=== PATIENT | female | born 1950 | race Caucasian/White ===

== ENCOUNTER 2022-06-09 03:59 | Day surgery (SDC) | payer OTHER ==
[2022-06-07 15:17] VITALS: BMI 23.8
[2022-06-09] MEDS ORDERED: LIDOCAINE HCL/PF 1% SDV 5ML VIAL ONE (07:26)
[2022-06-09 08:49] VITALS: RESP 18; TEMP 97.8
[2022-06-09] MEDS ORDERED: LIDOCAINE HCL 1% PRESERVATIVE FREE - 30ML VIAL IJ ONE (09:05)
[2022-06-09 12:53] VITALS: BP 184/84; PULSE 76
== END 2022-06-09 11:45 | disposition home or self-care (01) ==
LOC: JASU-SURG 03:59
PROVIDERS: ATTEND Pain Medicine Pain Medicine
PROC: 01HY3MZ Insertion of Neurostimulator Lead into Peripheral Nerve, Percutaneous Approach (ICD-10-PCS; principal; 2022-06-09 10:00)
DX: G89.4 Chronic pain syndrome (principal)
CPT/HCPCS: 64555; C1778

== ENCOUNTER → 2022-07-06 | Emergency (ER) | payer OTHER ==
[~2022-07-06] MED LIST: CEFTRIAXONE 1 GM in DEXTROSE 5%-WATER - 100 ML IVPB ONE; CEFTRIAXONE 1 GM/50 ML BAG ONE; SODIUM CHLORIDE 0.9% 1000 ML INFUS.BAG IV ONE
[2022-07-06 18:08] VITALS: BP 128/72; PULSE 68; RESP 18; TEMP 98.4; BMI 23.6
[2022-07-06 20:39] LABS: EPI CELLS 4 /uL (0-25.1); HYALINE CASTS 2 /uL (0-3.1); URINE APPEARANCE CLEAR; URINE BACTERIA >9,000 /uL (0-1359); URINE BILIRUBIN NEGATIVE (NEGATIVE); URINE COLOR YELLOW; URINE GLUCOSE (UA) NEGATIVE (NEGATIVE); URINE KETONE NEGATIVE (NEGATIVE); URINE LEUK ESTERASE 3+ (NEGATIVE); URINE NITRITE POSITIVE (NEGATIVE); URINE PROTEIN TRACE (NEGATIVE); URINE RBC 15 /uL (0-23.9); URINE WBC 350 /uL (0-25.8)
[2022-07-06 20:53] LABS: ALBUMIN 3.5 g/dl (3.4-5.0); BLOOD UREA NITROGEN 41.5 mg/dL (7-18); CALCIUM 9.1 mg/dL (8.5-10.1); MAGNESIUM 2.4 mg/dL (1.8-2.4)
[2022-07-06 20:57] LABS: BILIRUBIN,TOTAL 0.4 mg/dL (0.2-1); TOT PROT 7.4 g/dl (6.4-8.2)
[2022-07-06 21:55] LABS: BASO % 0.6 % (0-2.0); EOS % 1.6 % (0-4.5); HEMATOCRIT 35.4 % (32.4-45.2); HEMOGLOBIN 11.3 GM/dL (10.7-15.3); LYMPH % 42.1 % (8-40); MCH 24.7 pg (25.7-33.7); MCHC 31.9 g/dl (32.0-36.0); MEAN CELL VOLUME 77.5 fl (80-96); MEAN PLT VOLUME 8.7 fl (7.5-11.1); MONO % 11.2 % (3.8-10.2); NEUT % 44.5 % (42.8-82.8); PLATELET COUNT 522 10^3/uL (134-434); RBC 4.57 M/mm3 (3.60-5.2); RDW 17.8 % (11.6-15.6); WHITE BLOOD COUNT 10.2 K/mm3 (4.0-10.0)
== END | disposition home or self-care (01) ==
LOC: JER 17:18
PROC: 3E033GC Introduction of Other Therapeutic Substance into Peripheral Vein, Percutaneous Approach (ICD-10-PCS; principal; 2022-07-06)
DX: N39.0 Urinary tract infection, site not specified (principal); M54.9 Dorsalgia, unspecified; M25.551 Pain in right hip; G89.29 Other chronic pain; Z20.822 Contact with and (suspected) exposure to COVID-19
CPT/HCPCS: 0241U-QW; 36415; 71045-TC-FY; 80053; 81003; 83690; 83735; 85025; 87040; 87086; 87186; 93005; 93010; 99285-25

== ENCOUNTER 2022-08-29 03:35 | Day surgery (SDC) | payer OTHER ==
[2022-08-25 14:59] VITALS: BMI 23.6
[2022-08-29] MEDS ORDERED: BUPIVACAINE HCL/PF 0.75% 10 ML VIAL ONE (07:17)
[2022-08-29] MEDS ORDERED: LIDOCAINE HCL/PF 1% SDV 5ML VIAL ONE (07:18)
[2022-08-29] MEDS ORDERED: LIDOCAINE HCL 1% PRESERVATIVE FREE - 30ML VIAL IJ ONE (09:30)
[2022-08-29] MEDS ORDERED: BUPIVACAINE HCL/PF 0.75% 10 ML VIAL NR ONE (09:31)
[2022-08-29 10:40] VITALS: TEMP 98.5
[2022-08-29 10:41] VITALS: BP 130/60; PULSE 70; RESP 16
[2022-08-29] MEDS ORDERED: ACETAMINOPHEN 500 MG TABLET (FP) PO PRN (12:37)
== END 2022-08-29 10:00 | disposition home or self-care (01) ==
LOC: JASU-SURG 03:35
PROVIDERS: ATTEND Pain Medicine Pain Medicine
PROC: 3E0T3BZ Introduction of Anesthetic Agent into Peripheral Nerves and Plexi, Percutaneous Approach (ICD-10-PCS; principal; 2022-08-29 09:15)
DX: M47.816 Spondylosis without myelopathy or radiculopathy, lumbar region (principal)
CPT/HCPCS: 76000-TC-FY

== ENCOUNTER 2022-10-27 05:12 | Day surgery (SDC) | payer OTHER ==
[2022-10-09 10:50] VITALS: BMI 23.8
[~2022-10-27 05:12] MED LIST changes: +ACETAMINOPHEN 500 MG TABLET (FP) PO PRN; -CEFTRIAXONE 1 GM in DEXTROSE 5%-WATER - 100 ML IVPB ONE; -CEFTRIAXONE 1 GM/50 ML BAG ONE; -SODIUM CHLORIDE 0.9% 1000 ML INFUS.BAG IV ONE
[2022-10-27] MEDS ORDERED: LIDOCAINE HCL/PF 1% SDV 5ML VIAL ONE (07:44)
[2022-10-27] MEDS ORDERED: BUPIVACAINE HCL/PF 0.75% 10 ML VIAL ONE (07:44)
[2022-10-27] MEDS ORDERED: ACETAMINOPHEN 500 MG TABLET (FP) PO PRN (11:04)
[2022-10-27 11:16] VITALS: RESP 18
[2022-10-27] MEDS ORDERED: LIDOCAINE HCL 1% PRESERVATIVE FREE - 30ML VIAL IJ ONE (12:11)
[2022-10-27] MEDS ORDERED: BUPIVACAINE HCL/PF 0.75% 10 ML VIAL NR ONE (12:11)
[2022-10-27 12:35] VITALS: TEMP 97.6
[2022-10-27 13:27] VITALS: BP 158/76; PULSE 79
== END 2022-10-27 12:50 | disposition home or self-care (01) ==
LOC: JASU-SURG 05:12
PROVIDERS: ATTEND Pain Medicine Pain Medicine
PROC: 3E0T33Z Introduction of Anti-inflammatory into Peripheral Nerves and Plexi, Percutaneous Approach (ICD-10-PCS; 2022-10-27)
PROC: 3E0T3BZ Introduction of Anesthetic Agent into Peripheral Nerves and Plexi, Percutaneous Approach (ICD-10-PCS; principal; 2022-10-27 12:15)
DX: M47.816 Spondylosis without myelopathy or radiculopathy, lumbar region (principal)
CPT/HCPCS: 76000-TC-FY

== ENCOUNTER 2023-03-16 04:57 | Day surgery (SDC) | payer OTHER ==
[2023-03-14 12:02] VITALS: BMI 23.8
[2023-03-16] MEDS ORDERED: LIDOCAINE HCL/PF 1% SDV 5ML VIAL ONE (07:19)
[2023-03-16] MEDS ORDERED: DEXAMETHASONE SOD PHOSPHATE 10 MG/1 ML VIAL ONE ×2 (07:19→12:56)
[2023-03-16] MEDS ORDERED: LIDOCAINE HCL/PF 2% SDV 5ML VIAL ONE ×2 (07:19→12:56)
[2023-03-16] MEDS ORDERED: BUPIVACAINE HCL/PF 0.75% 10 ML VIAL ONE (07:19)
[2023-03-16] MEDS ORDERED: ACETAMINOPHEN 500 MG TABLET (FP) PO PRN (11:56)
[2023-03-16] MEDS ORDERED: LIDOCAINE 1% P/F 10 MG/ML VIAL INF ONE (13:31)
[2023-03-16] MEDS ORDERED: LIDOCAINE HCL 2% (50ML VIAL) INF ONE (13:31)
[2023-03-16] MEDS ORDERED: DEXAMETHASONE SOD PHOSPHATE 10 MG/1 ML VIAL IVPUSH ONE (13:31)
[2023-03-16 14:19] VITALS: BP 183/84; PULSE 71; RESP 18; TEMP 97.1
== END 2023-03-16 14:35 | disposition home or self-care (01) ==
LOC: JASU-SURG 04:57
PROVIDERS: ATTEND Pain Medicine Pain Medicine
PROC: 015B3ZZ Destruction of Lumbar Nerve, Percutaneous Approach (ICD-10-PCS; principal; 2023-03-16 13:30)
DX: M47.819 Spondylosis without myelopathy or radiculopathy, site unspecified (principal)
CPT/HCPCS: 76000-TC-FY; J1100

== ENCOUNTER 2024-01-31 07:15 | Day surgery (SDC) | payer OTHER ==
[2024-01-30 19:34] VITALS: BMI 24.5
[2024-01-31 14:18] VITALS: RESP 18; TEMP 98
[2024-01-31] MEDS: DEXAMETHASONE SOD PHOSPHATE 10 MG/1 ML VIAL IM ONE ×2 (15:25)
[2024-01-31] MEDS: LIDOCAINE HCL 1% PRESERVATIVE FREE - 30ML VIAL IJ ONE ×2 (15:25)
[2024-01-31] MEDS: BUPIVACAINE HCL/PF 0.75% 10 ML VIAL NR ONE ×2 (15:25)
[2024-01-31] MEDS: LIDOCAINE HCL/PF 2% SDV 5ML VIAL INF ONE (15:25)
[2024-01-31 16:22] VITALS: BP 151/70; PULSE 70
== END 2024-01-31 16:21 | disposition home or self-care (01) ==
LOC: JASU-SURG 07:15
PROVIDERS: ATTEND Pain Medicine Pain Medicine
PROC: 015B3ZZ Destruction of Lumbar Nerve, Percutaneous Approach (ICD-10-PCS; principal; 2024-01-31 16:00)
DX: M47.816 Spondylosis without myelopathy or radiculopathy, lumbar region (principal)
CPT/HCPCS: 76000-TC-FY; J1100

== ENCOUNTER 2024-02-28 04:07 | Day surgery (SDC) | payer OTHER ==
[2024-02-25 11:08] VITALS: BMI 24.5
[2024-02-28] MEDS: LIDOCAINE HCL/EPINEPHRINE/PF 10 ML VIAL NR ONE
[2024-02-28] MEDS ORDERED: ACETAMINOPHEN 500 MG TABLET (FP) PO PRN (09:31)
[2024-02-28 11:43] VITALS: BP 176/73; PULSE 82; RESP 16; TEMP 97.6
[2024-02-28] MEDS: LIDOCAINE HCL 1% PRESERVATIVE FREE - 30ML VIAL IJ ONE ×3 (14:02)
[2024-02-28] MEDS: LIDOCAINE HCL/PF 2% SDV 5ML VIAL INF ONE ×2 (14:12)
[2024-02-28] MEDS: BUPIVACAINE HCL/PF 0.75% 10 ML VIAL NR ONE ×3 (14:17)
[2024-02-28] MEDS: DEXAMETHASONE SOD PHOSPHATE 10 MG/1 ML VIAL IM ONE ×3 (14:17)
== END 2024-02-28 14:40 | disposition home or self-care (01) ==
LOC: JASU-SURG 04:07
PROVIDERS: ATTEND Pain Medicine Pain Medicine
PROC: X05133A Destruction of Renal Sympathetic Nerve(s) using Radiofrequency Ablation, Percutaneous Approach, New Technology Group 10 (ICD-10-PCS; principal; 2024-02-28 12:30)
DX: M47.816 Spondylosis without myelopathy or radiculopathy, lumbar region (principal)
CPT/HCPCS: 76000-TC-FY; J1100